=== PATIENT | female | born 1990 | race African-American/Black ===

== ENCOUNTER 2018-08-05 00:40 | Emergency (ER) | payer MEDICAID, SELFPAY ==
[2018-08-05] MEDS ORDERED: Metoclopramide HCl 10 MG/2 ML VIAL ONE (01:12)
[2018-08-05] MEDS ORDERED: diphenhydrAMINE 50 MG CAP ONE (01:12)
[2018-08-05] MEDS ORDERED: cloNIDine 0.1 MG TAB ONE (01:12)
[2018-08-05 01:17] LABS: #Basophils 0.1 thou/uL (0.0-0.2); #Lymphocytes 3.9 thou/uL (1.20-3.40); #Monocytes 0.5 thou/uL (0.11-0.59); #Neutrophils 3.5 thou/uL (1.40-6.50); %Basophils 1.8 % (0.0-1.0); %Eosinophils 0.5 % (0.0-10.0); %Lymphocytes 48.5 % (21.0-51.0); %Monocytes 5.9 % (0.0-10.0); %Neutrophils 43.3 % (42.0-75.0); Hemoglobin 13.8 g/dL (12.0-16.0); Mean Corpuscular HGB CONC 33.7 g/dL (32.0-36.0); Mean Corpuscular Hemoglobin 28.4 pg (27.0-31.0); Mean Corpuscular Volume 84.1 fL (78.0-98.0); Mean Platelet Volume 7.7 fL (7.4-10.4); Platelet Count 241 thou/uL (130-400); RBC Distribution Width 11.6 % (11.5-14.5); Red Blood Cell (RBC) Count 4.88 mill/uL (4.20-5.40); White Blood Cell (WBC) Count 8.1 thou/uL (4.8-10.8)
[2018-08-05 01:29] LABS: BHCG - Serum Negative (NEGATIVE); Pregs Control Background? CLEAR/WHITE (CLR/WHITE); Pregs Control Bar Appear? YES (CONTROL BAR)
[2018-08-05 01:45] LABS: Troponin I Less than 0.010 ng/mL (< 0.028)
[2018-08-05 01:47] LABS: ALT (SGPT) 30 U/L (8-55); AST (SGOT) 27 U/L (5-34); Albumin 4.1 g/dL (3.5-5.0); Alkaline Phosphatase 80 U/L (40-150); Anion Gap 14 mmol/L (10-20); BUN (Urea Nitrogen) 14 mg/dL (7.0-18.7); Bilirubin, Total 0.4 mg/dL (0.2-1.2); Calc. Creatinine Clearance 0 mL/min (70-130); Calcium 9.5 mg/dL (7.8-10.44); Carbon Dioxide 21 mmol/L (22-29); Chloride 107 mmol/L (98-107); Estimated GFR-MDRD Greater than 90; Globulin 3.7 g/dL (2.4-3.5); Glucose 104 mg/dL (70-105); Potassium 3.7 mmol/L (3.5-5.1); Protein, Total 7.8 g/dL (6.0-8.3); Sodium 138 mmol/L (136-145)
--- NOTE | 2018-08-05 08:51 | CT ---
PRELIMINARY REPORT/[facility]/EMERGENTY AFTER-HOURS PROCEDURE CT Head Without Intravenous Contrast CLINICAL HISTORY: 27 years old, female; Pain; Headache; Patient HX: F25 presents to the ed C/O HTN and headache that st arted around 1999. Pt. Reports that she checked BP while at home due to headache. Pt. Describes heada wes as tension to back of head and behind eye. Pt. Also reports photophobia. Pt. Reports that she too k some excedrin around 9p and states that it helped slightly. TECHNIQUE: Axial computed tomography images of the head/brain without intravenous contrast. COMPARISON: No relevant prior studies available. FINDINGS: Brain: Normal. Ventricles: Normal. Bones/joints: Normal. No acute fracture. Soft tissues: Normal. Sinuses: Normal. Mastoid air cells: Normal as visualized. No mastoid effusion. IMPRESSION: Normal head/brain CT. Thank you for allowing us to participate in the care of your patient. Dictated and Authenticated by: Moses Harris MD 08/05/2018 2:55 AM Central Time ([place] & [place]) FINAL REPORT EMERGENCY AFTER HOURS STUDY CT BRAIN NONCONTRAST: HISTORY: A 27-year-old female with headache, hypertension, and photophobia. FINDINGS: The ventricles are normal in size and configuration. There is no midline shift or any other mass eff ect. There is no evidence of acute intracranial hemorrhage, large cortical infarct, or extraaxial fl uid collection. The matthews matter /white matter differentiation is maintained. The calvarium is intac t. The tympanomastoid cavities, and the upper portions of the paranasal sinuses included in these im ages, are grossly clear. This report agrees with preliminary report by [facility]. IMPRESSION: Normal. jn [] POS: [facility]
== END 2018-08-05 03:23 | disposition home or self-care (01) ==
LOC: ERS 00:40
DX: I10 Essential (primary) hypertension (principal); R51 Headache
CPT/HCPCS: 70450; 80053; 83880; 84484; 84703; 85025; 93005; 96374; J2765

== ENCOUNTER 2019-04-19 12:43 | Outpatient (CLI) | payer BC ==
--- NOTE | 2019-04-19 13:54 | ULT ---
EXAM: Pelvic ultrasound HISTORY: Abnormal uterine bleeding COMPARISON: None TECHNIQUE: Multiple grayscale and color Doppler images were obtained in a transabdominal and transvag inal pelvic ultrasound. Spectral analysis of the Doppler waveforms of the ovaries were performed. FINDINGS: CERVIX: No evidence of nabothian cysts. UTERUS: 1.2 cm anterior uterine fibroid ENDOMETRIAL STRIPE: 9 mm. A small amount of free fluid is seen in the pelvis. RIGHT OVARY: Normal flow without focal mass. LEFT OVARY: Normal flow without focal mass. A dominant follicle seen in the left ovary. IMPRESSION: Small uterine fibroid
== END 2019-04-19 12:44 | disposition home or self-care (01) ==
LOC: ULT 12:43
PROVIDERS: ATTEND Family Medicine
DX: N93.9 Abnormal uterine and vaginal bleeding, unspecified (principal); D25.9 Leiomyoma of uterus, unspecified
CPT/HCPCS: 76856

== ENCOUNTER 2019-12-09 13:08 | Outpatient (CLI) | payer BC ==
--- NOTE | 2019-12-09 14:27 | ULT ---
PELVIC ULTRASOUND: 12/09/19 HISTORY: Pelvic pain. Real time imaging of the pelvis was obtained transabdominally as well as with an endovaginal probe. T his shows the uterus measuring 8.7 cm in length. The endometrium is in the 5 mm range. The right and left adnexa are normal in appearance. DOPPLER EVALUATION WITH SPECTRAL ANALYSIS: Normal flow is shown to both ovaries. Trace free fluid is noted. IMPRESSION: Essentially unremarkable pelvic ultrasound. POS: [facility]
== END 2019-12-09 13:09 | disposition home or self-care (01) ==
LOC: ULT 13:08
PROVIDERS: ATTEND Family Medicine
DX: R10.9 Unspecified abdominal pain (principal); G89.29 Other chronic pain
CPT/HCPCS: 76856

== ENCOUNTER → 2020-12-11 | Emergency (ER) | payer BC, OTHER ==
[~2020-12-11] MED LIST: Dexamethasone 10 MG/ML VIAL ONE; Ketorolac Tromethamine 30 MG/ML VIAL ONE; cefTRIAXone\\ROCEPHIN 1 GM VIAL ONE
== END ==
LOC: ERS 17:51
DX: J36 Peritonsillar abscess (principal)
CPT/HCPCS: 87081; 87430; 96365; 96375; J0696; J1100; J1885

== ENCOUNTER 2024-06-16 08:49 | Emergency (ER) | payer BC ==
[2024-06-16 09:50] LABS: #Basophils Less than 0.03 10x3/uL (0.0-0.2); #Eosinphils Less than 0.03 10x3/uL (0.0-0.7); %Basophils 0.3 % (0.0-1.0); %Eosinophils 0.3 % (0.0-10.0); %Lymphocytes 32.1 % (21.0-51.0); %Monocytes 7.1 % (0.0-10.0); %Neutrophils 59.9 % (42.0-75.0); Hematocrit 37.3 % (36.0-47.0); Mean Corpuscular HGB CONC 34.9 g/dL (32.0-36.0); Mean Corpuscular Hemoglobin 28.9 pg (27.0-31.0); Mean Corpuscular Volume 82.9 fL (78.0-98.0); Mean Platelet Volume 9.8 fL (7.4-10.4); Platelet Count 171 10x3/uL (130-400); RBC Distribution Width 12.8 % (11.5-14.5)
[2024-06-16 09:57] LABS: Bacteria/HPF None Seen HPF (None Seen); Bilirubin Negative (Negative); Blood, Urine 3+ (Negative); CAUTI Indications for Culture Pelvic or flank pain; Clarity Clear (Clear); Glucose, Urine (Dipstick) Normal (Negative); Ketone, Urine Negative (Negative); Leukocyte Negative Leu/uL (Negative); Nitrite Negative (Negative); Protein, Urine (Dipstick) Negative (Neg-Trace); Specific Gravity, Urine 1.023 (1.002-1.036); Urobilinogen Normal mg/dL (Less than 2); WBC/HPF 0-3 HPF (0-3)
[2024-06-16 09:58] LABS: Urine Culture Reflex No No
== END 2024-06-16 11:12 | disposition home or self-care (01) ==
LOC: ERS 08:49
DX: O20.0 Threatened abortion (principal); Z3A.09 9 weeks gestation of pregnancy
CPT/HCPCS: 36415; 76801; 81001; 84702; 85025; 86900; 86901

== ENCOUNTER 2025-06-15 10:57 | Emergency (ER) | payer BC, OTHER ==
[2025-06-15] MEDS ORDERED: Iopamidol-370 76% 500 ML MDV (1 ML CHARGE) ONE (11:22)
[2025-06-15] MEDS ORDERED: Ketorolac Tromethamine 30 MG (1 mL) VIAL ONE (12:23)
[2025-06-15] MEDS ORDERED: Acetaminophen 500 MG TAB ONE (12:23)
[2025-06-15 12:35] LABS: #Basophils Less than 0.03 10x3/uL (0.0-0.2); #Eosinophils 0.10 10x3/uL (0.0-0.7); #Monocytes 0.41 10x3/uL (0.11-0.59); #Neutrophils 3.01 10x3/uL (1.40-6.50); %Basophils 0.2 % (0.0-1.0); %Eosinophils 2.4 % (0.0-10.0); %Lymphocytes 14.7 % (21.0-51.0); %Monocytes 9.9 % (0.0-10.0); %Neutrophils 72.8 % (42.0-75.0); Hematocrit 39.8 % (36.0-47.0); Hemoglobin 13.2 g/dL (12.0-16.0); Mean Corpuscular Hemoglobin 27.4 pg (27.0-31.0); Mean Corpuscular Volume 82.6 fL (78.0-98.0); Platelet Count 149 10x3/uL (130-400); Red Blood Cell (RBC) Count 4.82 mill/uL (4.20-5.40); White Blood Cell (WBC) Count 4.14 10x3/uL (4.8-10.8)
[2025-06-15 12:57] LABS: ALT (SGPT) 37 U/L (Less than 34); AST (SGOT) 37 U/L (11-34); Albumin 4.2 g/dL (3.1-4.5); Alkaline Phosphatase 105 U/L (40-110); Anion Gap 13 mmol/L (10-20); BUN (Urea Nitrogen) 11 mg/dL (7.0-18.7); Bilirubin, Total 0.9 mg/dL (0.3-1.2); Calc. Creatinine Clearance 0 mL/min (70-130); Calcium 9.1 mg/dL (7.8-10.44); Carbon Dioxide 23 mmol/L (22-29); Chloride 106 mmol/L (98-107); Globulin 3.2 g/dL (2.4-3.5); Glucose 103 mg/dL (70-105); Potassium 3.9 mmol/L (3.5-5.1); Sodium 138 mmol/L (136-145)
[2025-06-15 13:30] LABS: BHCG - Serum Negative (NEGATIVE); Pregs Control Background? CLEAR/WHITE (CLR/WHITE); Pregs Control Bar Appear? YES (CONTROL BAR)
== END 2025-06-15 15:30 | disposition home or self-care (01) ==
LOC: ERS 10:57
DX: R51.9 Headache, unspecified (principal); I10 Essential (primary) hypertension
CPT/HCPCS: 36415; 71045; 71275; 80053; 84703; 85025; 93005; 96374; J1885